=== PATIENT | male | born 2000 | race Caucasian/White ===

== ENCOUNTER 2024-06-23 02:26 | Emergency (ER) | payer OTHER | END 2024-06-23 03:00 | disposition home or self-care (01) | LOC: FB.ED 02:26 | DX: S63.682A Other sprain of left thumb, initial encounter (principal); F17.210 Nicotine dependence, cigarettes, uncomplicated; Y04.0XXA Assault by unarmed brawl or fight, initial encounter | CPT/HCPCS: 73140-FA; 99283 ==